=== PATIENT | male | born 1980 | race Caucasian/White ===

== ENCOUNTER 2021-03-18 18:20 | Inpatient (IN) | payer OTHER ==
[~2021-03-18] VITALS: Ht 180.3 cm; Wt 74.7 kg
[2021-03-18 22:29] LABS: BASOPHILS % (AUTO) 0.4 % (0.0-2.0); EOSINOPHILS % (AUTO) 1.4 % (1.0-6.0); HEMATOCRIT 36.8 % (41-53); HEMOGLOBIN 11.8 g/dL (13.5-17.5); LYMPHOCYTES # (AUTO) 1.7 K/uL (1.0-4.8); LYMPHOCYTES % (AUTO) 15.9 % (22.0-44.0); MEAN CORPUSCULAR HEMOGLOBIN 25.7 pg (26.0-34.0); MEAN CORPUSCULAR VOLUME 80 fL (80-100); MONOCYTES # (AUTO) 0.6 K/uL (0.1-1.0); MONOCYTES % (AUTO) 5.4 % (2.0-9.0); NEUTROPHILS # (AUTO) 8.2 K/uL (1.8-7.7); NEUTROPHILS % (AUTO) 76.9 % (40.0-70.0); PLATELET COUNT (AUTO) 194 K/uL (150-450); RED BLOOD CELL COUNT(AUTO) 4.58 MIL/uL (4.50-5.90); RED CELL DISTRIBUTION WIDTH 17.1 % (11.5-14.5)
[2021-03-18 22:41] LABS: ANION GAP 8 mmol/L (8-16); CARBON DIOXIDE 25 mmol/L (22-29); CHLORIDE 104 mmol/L (98-107); GLOMERULAR FILTR. RATE CALC > 60 mL/min (>60); GLUCOSE,RANDOM 102 mg/dL (70-110); POTASSIUM 3.9 mmol/L (3.5-5.1); SODIUM SERUM 137 mmol/L (136-145); UREA NITROGEN, BLOOD 17 mg/dL (7-18)
[2021-03-18 22:45] LABS: ALANINE AMINOTRANSFERASE 20 U/L (12-78); ALBUMIN 2.4 g/dL (3.4-5.0); ALKALINE PHOSPHATASE 157 U/L (46-116); ASPARTATE AMINOTRANSFERASE 23 U/L (15-37); BILIRUBIN,TOTAL 0.5 mg/dL (0.1-1.0); TOTAL PROTEIN, SERUM 6.7 g/dL (6.4-8.2)
[2021-03-18] MEDS ORDERED: KETOROLAC TROMETHAMINE 60 MG/2 ML VIAL IM ONE (23:30)
[2021-03-19] MEDS ORDERED: FUROSEMIDE 40 MG/4 ML VIAL IVP ONE (00:30)
[2021-03-19] MEDS ORDERED: LORazepam 1 MG TABLET PO ONE (00:30)
[2021-03-19 01:43] LABS: COVID AG,FIA SOURCE NASOPHARYNGEAL
[2021-03-19] MEDS ORDERED: FUROSEMIDE 20 MG TABLET PO ONE (01:45)
[2021-03-19 03:12] VITALS: BP 115/73
[2021-03-19 07:25] LABS: BASOPHILS % (AUTO) 0.6 % (0.0-2.0); EOSINOPHILS % (AUTO) 1.7 % (1.0-6.0); HEMOGLOBIN 12.2 g/dL (13.5-17.5); MEAN CORPUSCULAR HEMOGLOBIN 25.2 pg (26.0-34.0); MEAN CORPUSCULAR HGB CONC 31.3 G/dL (31.0-37.0); MEAN CORPUSCULAR VOLUME 80 fL (80-100); MONOCYTES # (AUTO) 0.5 K/uL (0.1-1.0); MONOCYTES % (AUTO) 4.9 % (2.0-9.0); NEUTROPHILS # (AUTO) 6.8 K/uL (1.8-7.7); NEUTROPHILS % (AUTO) 71.8 % (40.0-70.0); PLATELET COUNT (AUTO) 193 K/uL (150-450); RED BLOOD CELL COUNT(AUTO) 4.85 MIL/uL (4.50-5.90); RED CELL DISTRIBUTION WIDTH 16.7 % (11.5-14.5)
[2021-03-19 07:33] LABS: ANION GAP 11 mmol/L (8-16); CARBON DIOXIDE 26 mmol/L (22-29); CHLORIDE 105 mmol/L (98-107); CREATININE 0.82 mg/dL (0.60-1.30); GLOMERULAR FILTR. RATE CALC > 60 mL/min (>60); GLUCOSE,RANDOM 90 mg/dL (70-110); POTASSIUM 3.7 mmol/L (3.5-5.1); SODIUM SERUM 142 mmol/L (136-145); UREA NITROGEN, BLOOD 19 mg/dL (7-18)
[2021-03-19] MEDS: CARVEDILOL 3.125 MG TABLET PO SCH ×2 (07:41→21:00)
[2021-03-19] MEDS: ASPIRIN 81 MG CHEWABLE TABLET PO SCH (07:41)
[2021-03-19] MEDS: FUROSEMIDE 20 MG/2 ML VIAL IVP SCH ×2 (07:41→21:00)
[2021-03-19 07:57] VITALS: BP 117/78
[2021-03-19 12:16] VITALS: BP 107/80
[2021-03-19 15:34] VITALS: BP 97/70
[2021-03-19 20:14] VITALS: BP 112/65
[2021-03-19] MEDS ORDERED: KETOROLAC TROMETHAMINE 15 MG/ML VIAL IVP PRN ×2 (20:15→20:57)
[2021-03-19] MEDS ORDERED: KETOROLAC TROMETHAMINE 30 MG/ML VIAL IVP PRN (20:15)
[2021-03-20 04:19] VITALS: BP 109/85
[2021-03-20 08:00] VITALS: BP 112/64
[2021-03-20] MEDS: FUROSEMIDE 20 MG/2 ML VIAL IVP SCH ×2 (08:48→20:44)
[2021-03-20] MEDS: ASPIRIN 81 MG CHEWABLE TABLET PO SCH (08:48)
[2021-03-20] MEDS: CARVEDILOL 3.125 MG TABLET PO SCH ×2 (08:49→20:44)
[2021-03-20 12:00] VITALS: BP 110/68
[2021-03-20 16:00] VITALS: BP 108/62
[2021-03-20 20:33] VITALS: BP 108/72
[2021-03-21] VITALS (7 sets, daily range): BP systolic 106–133; BP diastolic 64–77
[2021-03-21] MEDS: ASPIRIN 81 MG CHEWABLE TABLET PO SCH (07:48)
[2021-03-21] MEDS: FUROSEMIDE 20 MG/2 ML VIAL IVP SCH ×2 (07:48→19:44)
[2021-03-21] MEDS: CARVEDILOL 3.125 MG TABLET PO SCH ×2 (07:48→19:45)
[2021-03-21 12:16] LABS: BASOPHILS % (AUTO) 1.1 % (0.0-2.0); EOSINOPHILS % (AUTO) 1.2 % (1.0-6.0); HEMATOCRIT 36.3 % (41-53); HEMOGLOBIN 11.6 g/dL (13.5-17.5); LYMPHOCYTES # (AUTO) 1.3 K/uL (1.0-4.8); LYMPHOCYTES % (AUTO) 15.6 % (22.0-44.0); MEAN CORPUSCULAR HEMOGLOBIN 25.5 pg (26.0-34.0); MEAN CORPUSCULAR HGB CONC 31.9 G/dL (31.0-37.0); MEAN CORPUSCULAR VOLUME 80 fL (80-100); MONOCYTES # (AUTO) 0.4 K/uL (0.1-1.0); MONOCYTES % (AUTO) 4.5 % (2.0-9.0); NEUTROPHILS # (AUTO) 6.7 K/uL (1.8-7.7); NEUTROPHILS % (AUTO) 77.6 % (40.0-70.0); PLATELET COUNT (AUTO) 180 K/uL (150-450); RED BLOOD CELL COUNT(AUTO) 4.53 MIL/uL (4.50-5.90); RED CELL DISTRIBUTION WIDTH 16.5 % (11.5-14.5)
[2021-03-21 12:26] LABS: ANION GAP 5 mmol/L (8-16); CALCIUM, TOTAL 7.9 mg/dL (8.8-10.5); CARBON DIOXIDE 25 mmol/L (22-29); CHLORIDE 101 mmol/L (98-107); CREATININE 1.01 mg/dL (0.60-1.30); GLOMERULAR FILTR. RATE CALC > 60 mL/min (>60); GLUCOSE,RANDOM 103 mg/dL (70-110); POTASSIUM 4.5 mmol/L (3.5-5.1); SODIUM SERUM 131 mmol/L (136-145); UREA NITROGEN, BLOOD 21 mg/dL (7-18)
[2021-03-21 12:33] LABS: ALANINE AMINOTRANSFERASE 18 U/L (12-78); ALBUMIN 2.3 g/dL (3.4-5.0); ALKALINE PHOSPHATASE 116 U/L (46-116); ASPARTATE AMINOTRANSFERASE 23 U/L (15-37); BILIRUBIN,TOTAL 0.5 mg/dL (0.1-1.0); TOTAL PROTEIN, SERUM 6.5 g/dL (6.4-8.2)
[2021-03-21] MEDS: LORazepam 0.5 MG TABLET PO PRN (19:43)
[2021-03-22] VITALS (7 sets, daily range): BP systolic 104–116; BP diastolic 65–77
[2021-03-22] MEDS: LORazepam 0.5 MG TABLET PO PRN (05:58)
[2021-03-22] MEDS: ASPIRIN 81 MG CHEWABLE TABLET PO SCH (07:36)
[2021-03-22] MEDS: FUROSEMIDE 20 MG/2 ML VIAL IVP SCH (07:36)
[2021-03-22] MEDS: CARVEDILOL 3.125 MG TABLET PO SCH ×2 (07:36→20:59)
[2021-03-22] MEDS ORDERED: BACLOFEN 10 MG TABLET PO PRN (10:45)
[2021-03-22] MEDS ORDERED: TraZODone HCL 50 MG TABLET PO PRN (10:45)
[2021-03-22] MEDS ORDERED: MAG HYDROX/AL HYDROX/SIMETH ES 30 ML SUSPENSION UDCUP PO PRN (10:45)
[2021-03-22] MEDS ORDERED: LOPERAMIDE HCL 2 MG/15 ML SUSPENSION UDCUP PO PRN (10:45)
[2021-03-22] MEDS ORDERED: PROMETHAZINE HCL 25 MG TABLET PO PRN (10:45)
[2021-03-22] MEDS ORDERED: DICYCLOMINE HCL 10 MG CAPSULE PO PRN (10:45)
[2021-03-22 12:04] LABS: EOSINOPHILS % (AUTO) 1.2 % (1.0-6.0); HEMATOCRIT 37.3 % (41-53); HEMOGLOBIN 11.7 g/dL (13.5-17.5); LYMPHOCYTES # (AUTO) 1.4 K/uL (1.0-4.8); LYMPHOCYTES % (AUTO) 16.2 % (22.0-44.0); MEAN CORPUSCULAR HEMOGLOBIN 25.3 pg (26.0-34.0); MEAN CORPUSCULAR HGB CONC 31.4 G/dL (31.0-37.0); MEAN CORPUSCULAR VOLUME 81 fL (80-100); MONOCYTES # (AUTO) 0.5 K/uL (0.1-1.0); MONOCYTES % (AUTO) 5.1 % (2.0-9.0); NEUTROPHILS # (AUTO) 6.8 K/uL (1.8-7.7); NEUTROPHILS % (AUTO) 76.5 % (40.0-70.0); PLATELET COUNT (AUTO) 182 K/uL (150-450); RED BLOOD CELL COUNT(AUTO) 4.63 MIL/uL (4.50-5.90); RED CELL DISTRIBUTION WIDTH 16.7 % (11.5-14.5)
[2021-03-22 12:15] LABS: ANION GAP 4 mmol/L (8-16); CALCIUM, TOTAL 8.2 mg/dL (8.8-10.5); CARBON DIOXIDE 27 mmol/L (22-29); CHLORIDE 101 mmol/L (98-107); CREATININE 0.97 mg/dL (0.60-1.30); GLOMERULAR FILTR. RATE CALC > 60 mL/min (>60); GLUCOSE,RANDOM 123 mg/dL (70-110); POTASSIUM 4.7 mmol/L (3.5-5.1); SODIUM SERUM 132 mmol/L (136-145); UREA NITROGEN, BLOOD 21 mg/dL (7-18)
[2021-03-22 12:22] LABS: ALANINE AMINOTRANSFERASE 17 U/L (12-78); ALBUMIN 2.3 g/dL (3.4-5.0); ALKALINE PHOSPHATASE 122 U/L (46-116); ASPARTATE AMINOTRANSFERASE 23 U/L (15-37); BILIRUBIN,TOTAL 0.5 mg/dL (0.1-1.0); TOTAL PROTEIN, SERUM 6.7 g/dL (6.4-8.2)
[2021-03-22] MEDS: HydrOXYzine PAMOATE 50 MG CAPSULE PO PRN (15:38)
[2021-03-22] MEDS: FUROSEMIDE 40 MG/4 ML VIAL IVP SCH (20:59)
[2021-03-23 03:31] VITALS: BP 108/73
[2021-03-23 07:23] LABS: BASOPHILS % (AUTO) 0.7 % (0.0-2.0); EOSINOPHILS % (AUTO) 1.2 % (1.0-6.0); HEMATOCRIT 38.8 % (41-53); HEMOGLOBIN 12.3 g/dL (13.5-17.5); MEAN CORPUSCULAR HEMOGLOBIN 25.5 pg (26.0-34.0); MEAN CORPUSCULAR HGB CONC 31.7 G/dL (31.0-37.0); MEAN CORPUSCULAR VOLUME 81 fL (80-100); MONOCYTES # (AUTO) 0.5 K/uL (0.1-1.0); MONOCYTES % (AUTO) 6.2 % (2.0-9.0); NEUTROPHILS # (AUTO) 5.9 K/uL (1.8-7.7); NEUTROPHILS % (AUTO) 68.9 % (40.0-70.0); PLATELET COUNT (AUTO) 204 K/uL (150-450); RED BLOOD CELL COUNT(AUTO) 4.81 MIL/uL (4.50-5.90)
[2021-03-23 07:37] LABS: ALANINE AMINOTRANSFERASE 14 U/L (12-78); ALBUMIN 2.4 g/dL (3.4-5.0); ALKALINE PHOSPHATASE 123 U/L (46-116); ANION GAP 8 mmol/L (8-16); ASPARTATE AMINOTRANSFERASE 17 U/L (15-37); BILIRUBIN,TOTAL 0.5 mg/dL (0.1-1.0); CALCIUM, TOTAL 8.5 mg/dL (8.8-10.5); CARBON DIOXIDE 26 mmol/L (22-29); CHLORIDE 102 mmol/L (98-107); CREATININE 1.01 mg/dL (0.60-1.30); GLOMERULAR FILTR. RATE CALC > 60 mL/min (>60); GLUCOSE,RANDOM 112 mg/dL (70-110); POTASSIUM 4.4 mmol/L (3.5-5.1); SODIUM SERUM 136 mmol/L (136-145); TOTAL PROTEIN, SERUM 6.9 g/dL (6.4-8.2); UREA NITROGEN, BLOOD 19 mg/dL (7-18)
[2021-03-23 08:06] VITALS: BP 103/70
[2021-03-23] MEDS: CARVEDILOL 3.125 MG TABLET PO SCH ×2 (09:00→20:14)
[2021-03-23] MEDS: ACETAMINOPHEN 325 MG TABLET PO PRN ×2 (09:03→18:19)
[2021-03-23] MEDS: ASPIRIN 81 MG CHEWABLE TABLET PO SCH (09:03)
[2021-03-23] MEDS: FUROSEMIDE 40 MG/4 ML VIAL IVP SCH ×2 (09:04→20:14)
[2021-03-23 11:31] VITALS: BP 110/71
[2021-03-23 15:25] VITALS: BP 105/63
[2021-03-23 19:01] LABS: PATHOLOGY REVIEW, DIFF YES
[2021-03-23 19:50] VITALS: BP 119/72
[2021-03-23] MEDS: HydrOXYzine PAMOATE 50 MG CAPSULE PO PRN (20:20)
[2021-03-23 23:55] VITALS: BP 111/84
[2021-03-24 03:55] VITALS: BP 95/55
[2021-03-24 06:39] LABS: BASOPHILS % (AUTO) 4.7 % (0.0-2.0); EOSINOPHILS % (AUTO) 1.5 % (1.0-6.0); HEMATOCRIT 39.9 % (41-53); HEMOGLOBIN 12.5 g/dL (13.5-17.5); LYMPHOCYTES # (AUTO) 1.8 K/uL (1.0-4.8); LYMPHOCYTES % (AUTO) 22.3 % (22.0-44.0); MEAN CORPUSCULAR HEMOGLOBIN 25.4 pg (26.0-34.0); MEAN CORPUSCULAR HGB CONC 31.4 G/dL (31.0-37.0); MEAN CORPUSCULAR VOLUME 81 fL (80-100); MONOCYTES # (AUTO) 0.5 K/uL (0.1-1.0); MONOCYTES % (AUTO) 6.3 % (2.0-9.0); NEUTROPHILS # (AUTO) 5.3 K/uL (1.8-7.7); NEUTROPHILS % (AUTO) 65.2 % (40.0-70.0); PLATELET COUNT (AUTO) 218 K/uL (150-450); RED BLOOD CELL COUNT(AUTO) 4.94 MIL/uL (4.50-5.90); RED CELL DISTRIBUTION WIDTH 17.6 % (11.5-14.5)
[2021-03-24 07:04] LABS: ALANINE AMINOTRANSFERASE 15 U/L (12-78); ALBUMIN 2.2 g/dL (3.4-5.0); ALKALINE PHOSPHATASE 106 U/L (46-116); ANION GAP 7 mmol/L (8-16); ASPARTATE AMINOTRANSFERASE 17 U/L (15-37); BILIRUBIN,TOTAL 0.4 mg/dL (0.1-1.0); CALCIUM, TOTAL 8.3 mg/dL (8.8-10.5); CARBON DIOXIDE 25 mmol/L (22-29); CHLORIDE 104 mmol/L (98-107); CREATININE 0.97 mg/dL (0.60-1.30); GLOMERULAR FILTR. RATE CALC > 60 mL/min (>60); GLUCOSE,RANDOM 99 mg/dL (70-110); POTASSIUM 4.2 mmol/L (3.5-5.1); SODIUM SERUM 136 mmol/L (136-145); TOTAL PROTEIN, SERUM 6.6 g/dL (6.4-8.2); UREA NITROGEN, BLOOD 20 mg/dL (7-18)
[2021-03-24 07:07] VITALS: BP 112/75
[2021-03-24] MEDS: ASPIRIN 81 MG CHEWABLE TABLET PO SCH (09:17)
[2021-03-24] MEDS: FUROSEMIDE 40 MG/4 ML VIAL IVP SCH (09:18)
[2021-03-24] MEDS: CARVEDILOL 3.125 MG TABLET PO SCH (09:18)
[2021-03-24] MEDS: HydrOXYzine PAMOATE 50 MG CAPSULE PO PRN (09:21)
[2021-03-24 11:39] VITALS: BP 100/66
[2021-03-24] MEDS ORDERED: FURO40 PO (14:04)
[2021-03-24] MEDS ORDERED: ASPI-1450 PO (14:04)
[2021-03-24] MEDS ORDERED: POTA8TAB71 PO (14:05)
[2021-03-24] MEDS ORDERED: CARV3 PO (14:06)
== END 2021-03-24 15:30 | DRG 291 ==
LOC: EMS 18:34 → 5N 03-19 01:31 → 5S 03-22 20:10
PROVIDERS: ADMIT Internal Medicine; ATTEND Internal Medicine
DX: I50.33 Acute on chronic diastolic (congestive) heart failure (principal); E43 Unspecified severe protein-calorie malnutrition; F11.13 Opioid abuse with withdrawal; Z20.822 Contact with and (suspected) exposure to COVID-19; D64.9 Anemia, unspecified; N50.89 Other specified disorders of the male genital organs; F15.10 Other stimulant abuse, uncomplicated; F41.9 Anxiety disorder, unspecified; G47.00 Insomnia, unspecified; Z68.23 Body mass index [BMI] 23.0-23.9, adult; Z95.2 Presence of prosthetic heart valve
CPT/HCPCS: 71045; 76870; 80048; 80053; 83880; 84484; 85025; 87040; 93005; 93306; 99285; G0480; J1885; J1940; 36415-L1; 36415-TC

== ENCOUNTER 2021-11-29 00:23 | Inpatient (IN) | payer OTHER ==
[~2021-11-29] VITALS: Ht 177.8 cm; Wt 73.0 kg
[~2021-11-29 00:23] MED LIST: ASPI-1450 PO; CARV3 PO; FURO40 PO; POTA8TAB71 PO
[2021-11-29] MEDS ORDERED: ONDANSETRON HCL 4 MG TABLET PO ONE (03:30)
[2021-11-29 03:34] LABS: BASOPHILS % (AUTO) 0.4 % (0.0-2.0); EOSINOPHILS % (AUTO) 0.3 % (1.0-6.0); HEMATOCRIT 38.9 % (41-53); HEMOGLOBIN 12.4 g/dL (13.5-17.5); LYMPHOCYTES # (AUTO) 1.3 K/uL (1.0-4.8); LYMPHOCYTES % (AUTO) 21.1 % (22.0-44.0); MEAN CORPUSCULAR HEMOGLOBIN 23.7 pg (26.0-34.0); MEAN CORPUSCULAR HGB CONC 31.7 G/dL (31.0-37.0); MEAN CORPUSCULAR VOLUME 75 fL (80-100); MONOCYTES # (AUTO) 0.2 K/uL (0.1-1.0); MONOCYTES % (AUTO) 3.3 % (2.0-9.0); NEUTROPHILS # (AUTO) 4.6 K/uL (1.8-7.7); NEUTROPHILS % (AUTO) 74.9 % (40.0-70.0); PLATELET COUNT (AUTO) 163 K/uL (150-450); RED BLOOD CELL COUNT(AUTO) 5.22 MIL/uL (4.50-5.90)
[2021-11-29 03:38] LABS: ANION GAP 6 mmol/L (8-16); CARBON DIOXIDE 27 mmol/L (22-29); CHLORIDE 104 mmol/L (98-107); CREATININE 0.79 mg/dL (0.60-1.30); GLOMERULAR FILTR. RATE CALC > 60 mL/min (>60); GLUCOSE,RANDOM 96 mg/dL (70-110); POTASSIUM 3.9 mmol/L (3.5-5.1); SODIUM SERUM 137 mmol/L (136-145); UREA NITROGEN, BLOOD 9 mg/dL (7-18)
[2021-11-29 03:44] LABS: ALANINE AMINOTRANSFERASE 16 U/L (12-78); ALBUMIN 3.4 g/dL (3.4-5.0); ALKALINE PHOSPHATASE 116 U/L (46-116); ASPARTATE AMINOTRANSFERASE 27 U/L (15-37); BILIRUBIN,TOTAL 0.6 mg/dL (0.1-1.0); TOTAL PROTEIN, SERUM 7.8 g/dL (6.4-8.2)
[2021-11-29 04:07] LABS: COVID AG,FIA SOURCE NASAL SWAB
[2021-11-29 07:24] VITALS: BP 145/83
[2021-11-29] MEDS ORDERED: MAGNESIUM HYDROXIDE SUSPENSION 30 ML UDCUP PO PRN (08:15)
[2021-11-29] MEDS: FAMOTIDINE 20 MG TABLET PO SCH (09:04)
[2021-11-29 10:54] VITALS: BP 128/55
[2021-11-29 15:57] VITALS: BP 127/69
[2021-11-29] MEDS: LORazepam 2 MG/ML VIAL IVP PRN (20:40)
[2021-11-29 20:49] VITALS: BP 141/84
[2021-11-30] MEDS: LORazepam 2 MG/ML VIAL IVP PRN (03:44)
[2021-11-30 04:46] VITALS: BP 141/84
[2021-11-30 08:20] VITALS: BP 150/90
[2021-11-30 08:23] VITALS: BP 125/68
[2021-11-30] MEDS: FAMOTIDINE 20 MG TABLET PO SCH (08:32)
[2021-11-30] MEDS: ACETAMINOPHEN 325 MG TABLET PO PRN (08:37)
[2021-11-30 15:43] VITALS: BP 126/73
[2021-11-30 19:57] VITALS: BP 141/91
[2021-11-30] MEDS ORDERED: ZOLPIDEM TARTRATE 5 MG TABLET PO PRN (20:15)
[2021-12-01 04:43] VITALS: BP 134/75
[2021-12-01 07:41] VITALS: BP 144/76
[2021-12-01] MEDS: FAMOTIDINE 20 MG TABLET PO SCH (08:46)
[2021-12-01] MEDS: LORazepam 1 MG TABLET PO PRN ×2 (10:21→20:30)
[2021-12-01 19:57] VITALS: BP 145/91
[2021-12-01] MEDS: TraZODone HCL 100 MG TABLET PO SCH (20:30)
[2021-12-02] VITALS (7 sets, daily range): BP systolic 133–151; BP diastolic 80–94
[2021-12-02] MEDS: LORazepam 1 MG TABLET PO PRN ×3 (04:56→22:04)
[2021-12-02] MEDS: FAMOTIDINE 20 MG TABLET PO SCH (07:41)
[2021-12-02] MEDS: ACETAMINOPHEN 325 MG TABLET PO PRN ×2 (07:42→13:19)
[2021-12-02] MEDS ORDERED: MORPHINE SULFATE 2 MG/ML SYRINGE IVP ONE (14:15)
[2021-12-02] MEDS: TraZODone HCL 100 MG TABLET PO SCH (22:01)
[2021-12-03 04:41] VITALS: BP 142/85
[2021-12-03] MEDS: LORazepam 1 MG TABLET PO PRN ×2 (06:54→14:34)
[2021-12-03] MEDS: ACETAMINOPHEN 325 MG TABLET PO PRN ×2 (06:55→21:11)
[2021-12-03 07:15] VITALS: BP 132/88
[2021-12-03] MEDS: FAMOTIDINE 20 MG TABLET PO SCH ×2 (09:00→09:04)
[2021-12-03] MEDS: ASPIRIN 81 MG DR TABLET PO SCH (10:34)
[2021-12-03 11:00] VITALS: BP 138/79
[2021-12-03 15:45] VITALS: BP 113/84
[2021-12-03 19:24] VITALS: BP 122/82
[2021-12-03] MEDS: CARVEDILOL 3.125 MG TABLET PO SCH (21:10)
[2021-12-03] MEDS: TraZODone HCL 100 MG TABLET PO SCH (21:10)
[2021-12-03 23:49] VITALS: BP 129/77
[2021-12-04] MEDS: LORazepam 1 MG TABLET PO PRN ×3 (02:56→15:58)
[2021-12-04] MEDS: ACETAMINOPHEN 325 MG TABLET PO PRN ×2 (02:57→09:50)
[2021-12-04 04:15] VITALS: BP 125/78
[2021-12-04 07:35] VITALS: BP 139/80
[2021-12-04] MEDS: ASPIRIN 81 MG DR TABLET PO SCH (08:25)
[2021-12-04] MEDS: FAMOTIDINE 20 MG TABLET PO SCH (08:25)
[2021-12-04] MEDS: CARVEDILOL 3.125 MG TABLET PO SCH ×2 (08:25→20:33)
[2021-12-04] MEDS: TraMADol HCL 50 MG TABLET PO PRN ×2 (12:06→20:39)
[2021-12-04] MEDS: GABAPENTIN 300 MG CAPSULE PO SCH ×2 (13:09→20:31)
[2021-12-04] MEDS: HydrOXYzine PAMOATE 50 MG CAPSULE PO SCH ×2 (15:58→20:31)
[2021-12-04 16:10] VITALS: BP 137/79
[2021-12-04 20:04] VITALS: BP 149/84
[2021-12-04] MEDS: TraZODone HCL 150 MG TABLET PO SCH (20:32)
[2021-12-05] VITALS (7 sets, daily range): BP systolic 123–143; BP diastolic 69–92
[2021-12-05] MEDS: TraMADol HCL 50 MG TABLET PO PRN ×2 (06:40→15:05)
[2021-12-05 06:46] LABS: BASOPHILS % (AUTO) 0.7 % (0.0-2.0); EOSINOPHILS % (AUTO) 0.7 % (1.0-6.0); HEMATOCRIT 41.2 % (41-53); LYMPHOCYTES # (AUTO) 2.2 K/uL (1.0-4.8); LYMPHOCYTES % (AUTO) 33.1 % (22.0-44.0); MEAN CORPUSCULAR HEMOGLOBIN 23.8 pg (26.0-34.0); MEAN CORPUSCULAR HGB CONC 31.7 G/dL (31.0-37.0); MEAN CORPUSCULAR VOLUME 75 fL (80-100); MONOCYTES # (AUTO) 0.3 K/uL (0.1-1.0); NEUTROPHILS # (AUTO) 4.1 K/uL (1.8-7.7); NEUTROPHILS % (AUTO) 60.5 % (40.0-70.0); PLATELET COUNT (AUTO) 159 K/uL (150-450); RED BLOOD CELL COUNT(AUTO) 5.49 MIL/uL (4.50-5.90); RED CELL DISTRIBUTION WIDTH 16.6 % (11.5-14.5)
[2021-12-05 07:03] LABS: ANION GAP 9 mmol/L (8-16); CALCIUM, TOTAL 8.4 mg/dL (8.8-10.5); CARBON DIOXIDE 24 mmol/L (22-29); CHLORIDE 107 mmol/L (98-107); CREATININE 0.92 mg/dL (0.60-1.30); GLOMERULAR FILTR. RATE CALC > 60 mL/min (>60); GLUCOSE,RANDOM 97 mg/dL (70-110); POTASSIUM 3.9 mmol/L (3.5-5.1); SODIUM SERUM 140 mmol/L (136-145); UREA NITROGEN, BLOOD 12 mg/dL (7-18)
[2021-12-05] MEDS: ASPIRIN 81 MG DR TABLET PO SCH (08:02)
[2021-12-05] MEDS: CARVEDILOL 3.125 MG TABLET PO SCH ×2 (08:02→20:31)
[2021-12-05] MEDS: HydrOXYzine PAMOATE 50 MG CAPSULE PO SCH ×3 (08:02→20:31)
[2021-12-05] MEDS: LORazepam 1 MG TABLET PO PRN (08:02)
[2021-12-05] MEDS: FAMOTIDINE 20 MG TABLET PO SCH (08:02)
[2021-12-05] MEDS: GABAPENTIN 300 MG CAPSULE PO SCH ×2 (08:02→20:32)
[2021-12-05] MEDS: NITROGLYCERIN 0.4 MG SUBLINGUAL TABLET #25 SL PRN (09:09)
[2021-12-05] MEDS: ACETAMINOPHEN 325 MG TABLET PO PRN (13:22)
[2021-12-05] MEDS: TraZODone HCL 150 MG TABLET PO SCH (20:31)
[2021-12-06] MEDS: NITROGLYCERIN 0.4 MG SUBLINGUAL TABLET #25 SL PRN (03:21)
[2021-12-06 05:04] VITALS: BP 101/67
[2021-12-06 07:25] VITALS: BP 130/83
[2021-12-06] MEDS: ASPIRIN 81 MG DR TABLET PO SCH (08:16)
[2021-12-06] MEDS: CARVEDILOL 3.125 MG TABLET PO SCH (08:16)
[2021-12-06] MEDS: HydrOXYzine PAMOATE 50 MG CAPSULE PO SCH (08:16)
[2021-12-06] MEDS: FAMOTIDINE 20 MG TABLET PO SCH (08:17)
[2021-12-06] MEDS: GABAPENTIN 300 MG CAPSULE PO SCH (08:17)
[2021-12-06] MEDS: ACETAMINOPHEN 325 MG TABLET PO PRN (09:54)
[2021-12-06 10:52] VITALS: BP 120/69
[2021-12-06] MEDS ORDERED: ASPI-1444 PO (11:37)
[2021-12-06] MEDS ORDERED: CARV3 PO (11:37)
[2021-12-06] MEDS ORDERED: FAMO20 PO (11:38)
[2021-12-06] MEDS ORDERED: GABA-1181 PO (11:38)
[2021-12-06] MEDS ORDERED: HYDR50CA7 PO (11:39)
[2021-12-06] MEDS ORDERED: ACET-2247 PO (11:41)
[2021-12-06] MEDS ORDERED: ACET-3385 PO (11:41)
[2021-12-06] MEDS ORDERED: MAGN-160 PO (11:48)
== END 2021-12-06 13:50 | DRG 897 ==
LOC: EDUNIT# 00:23 → EMS 00:24 → 5S 04:53 → 6S 10:40 → 5S 12-02 16:30
PROVIDERS: ADMIT Internal Medicine; ATTEND Internal Medicine
DX: F11.23 Opioid dependence with withdrawal (principal); F15.23 Other stimulant dependence with withdrawal; F29 Unspecified psychosis not due to a substance or known physiological condition; F41.0 Panic disorder [episodic paroxysmal anxiety]; I35.1 Nonrheumatic aortic (valve) insufficiency; I50.9 Heart failure, unspecified; Z20.822 Contact with and (suspected) exposure to COVID-19; F19.10 Other psychoactive substance abuse, uncomplicated; F41.1 Generalized anxiety disorder; Z59.00 Homelessness unspecified; Z91.19 Patient's noncompliance with other medical treatment and regimen; Z95.3 Presence of xenogenic heart valve; Z79.82 Long term (current) use of aspirin; Z76.5 Malingerer [conscious simulation]
CPT/HCPCS: 71045; 80048; 80053; 83880; 84484; 85025; 93005; 93306; 99285; G0480; J2060; J2270; Q0162; 36415-L1; 36415-TC